=== PATIENT | female | born 2000 | race Caucasian/White ===

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

== ENCOUNTER 2024-07-21 17:17 | Emergency (ER) | payer OTHER, SELFPAY ==
[2024-07-21 17:55] VITALS: BP 112/33; PULSE 61; RESP 20; TEMP 36.8; O2SAT 100; BMI 19.5
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
[2024-07-21 19:37] LABS: IDNOW Serial# 08D9AD1C; Strep A Nucleic Acid Negative (Negative)
[2024-07-21 20:09] LABS: Influenza A PCR NEGATIVE (Negative); Influenza B PCR NEGATIVE (Negative); Resp Syncy Virus RNA Qual PCR NEGATIVE (Negative); SARS COV2 PCR INHOUSE NEGATIVE (Negative)
[2024-07-21 21:01] VITALS: BP 113/73; PULSE 57; RESP 18; TEMP 37.2; O2SAT 99
== END 2024-07-21 23:46 | disposition left against medical advice (07) ==
LOC: HO.ED 23:42
PROVIDERS: Physician Assistant; Emergency Provider Emergency Medicine
DX: J02.9 Acute pharyngitis, unspecified (principal); Z03.818 Encounter for observation for suspected exposure to other biological agents ruled out; Z59.00 Homelessness unspecified
CPT/HCPCS: 0241U; 87651; 99281; 99283

== ENCOUNTER 2024-07-28 11:39 | Emergency (ER) | payer SELFPAY ==
[2024-07-28 11:46] VITALS: BP 108/56; PULSE 90; RESP 18; TEMP 36.6; O2SAT 99; BMI 17.5
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
[2024-07-28 12:54] LABS: MANUAL DIFF FLAG NO
[2024-07-28 12:57] LABS: Basophils Percent Auto 0.4 % (0-2); Eosinophils Percent Auto 0.7 % (0-4); Hematocrit 35.9 % (37.0-47.0); Hemoglobin 12.3 g/dl (12.0-16.0); Imm Gran Abs Auto 0.01 X10*3/uL (0.00-0.03); Imm Gran Pct Auto 0.2 % (0.0-0.4); Lymphocytes Absolute Auto 1.6 X10*3/uL (1.2-4.9); Lymphocytes Percent Auto 29.7 % (20-40); Mean Corpuscular HGB Conc 34.3 g/dl (31.0-35.0); Mean Corpuscular Hemoglobin 32.4 pg (27.0-33.0); Mean Corpuscular Volume 94.5 fL (80.0-98.0); Mean Platelet Volume 8.6 fL (9.4-12.3); Monocytes Absolute Auto 0.4 X10*3/uL (0.1-1.2); Monocytes Percent Auto 7.1 % (2-11); Neutrophils Absolute Auto 3.4 x10*3/uL (2.0-8.3); Neutrophils Percent Auto 61.9 % (45-73); Platelet Count 245 X10*3/uL (160-400); Red Cell Distribution Width 12.8 % (11.0-16.0); White Blood Count 5.5 X10*3/uL (4.8-10.8)
[2024-07-28 13:03] LABS: Appearance Urine Clear; Color Urine Yellow; Glucose Urine UA Negative (Negative); Leukocyte Esterase Urine Negative (Negative); Nitrite Urine Negative (Negative); Specific Gravity - Urine 1.025 (1.005-1.025); Urine Blood Negative (Negative); Urine Ketones Trace mg/dL (Negative); Urine Protein Trace mg/dL (Neg-Trace)
[2024-07-28 13:06] LABS: UPreg QC Valid YES; Urine Pregnancy POSITIVE (NEGATIVE)
[2024-07-28 13:11] LABS: Alanine Aminotransferase 14 U/L (0-31); Albumin Level 4.2 g/dL (3.5-5.0); Alkaline Phosphatase 50 U/L (39-117); Anion Gap 8 (12-20); Aspartate Amino Transferase 16 U/L (5-31); Bilirubin Direct 0.1 mg/dL (0.0-0.5); Bilirubin Total 0.3 mg/dL (0.0-1.0); Blood Urea Nitrogen 10 mg/dL (9-16); Calcium 8.6 mg/dL (8.4-10.2); Carbon Dioxide 28 mmol/L (22-29); Chloride 110 mmol/L (96-108); Creatinine Clr Calc Pharmacy 83.3; Estimated Glomerular Filt Rate > 60; Glucose Random 80 mg/dL (60-115); Lipase 29 U/L (8-78); Magnesium 2.1 mg/dL (1.6-2.6); Sodium 142 mmol/L (135-145); Total Protein 7.1 g/dL (6.5-8.0)
[2024-07-28 13:16] LABS: HCG Quantitative 129 mIU/mL
[2024-07-28 17:25] VITALS: BP 108/56; PULSE 90; RESP 18; TEMP 36.6; O2SAT 99
== END 2024-07-28 17:25 | disposition home or self-care (01) ==
PROVIDERS: Physician Assistant; Emergency Provider Emergency Medicine
DX: R10.2 Pelvic and perineal pain (principal); R11.2 Nausea with vomiting, unspecified; Z79.899 Other long term (current) drug therapy
CPT/HCPCS: 36415; 80048; 80076; 81003; 81025; 83690; 83735; 84702; 85025; 99282; 99283

== ENCOUNTER 2024-08-08 16:13 | Emergency (ER) | payer OTHER, SELFPAY ==
--- NOTE | ~2024-08-08 | US_ITS ---
CLINICAL HISTORY: LMP 12 24 25 here with pain no bleeding + US OB 1st Trimester transabdominal and transvaginal Comparison: None Findings: Single intrauterine . Gestational sac identified with a mean sac diameter of 0.96 cm for a gestational age of 5 weeks 4 days There is a possible pole within the gestational sac measuring 0.18 cm in length for a gestational age of 5 weeks 4 days. No heart motion identified. No yolk sac visualized. Previously established gestational age: Five weeks 3 days by LMP. No subchorionic bleed. Ovaries are normal in size and appearance. There is a 2 cm corpus luteum cyst within the right ovary. IMPRESSION: Single intrauterine gestational sac corresponding to a gestational age of 5 weeks 4 days. Possible pole identified, although no heart motion seen, which may be due to very early . Recommend follow-up ultrasound in 7 days to establish viability. This document has been electronically signed by: Tato Pierce MD on 08/08/2024 19:00:59
[2024-08-08 16:43] VITALS: BP 122/68; PULSE 80; RESP 18; TEMP 36.6; O2SAT 100; BMI 17.6
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
[2024-08-08 17:05] LABS: MANUAL DIFF FLAG NO
[2024-08-08 17:09] LABS: Basophils Percent Auto 0.3 % (0-2); Eosinophils Absolute Auto 0.1 X10*3/uL (0.0-0.4); Eosinophils Percent Auto 0.9 % (0-4); Hematocrit 35.5 % (37.0-47.0); Hemoglobin 12.2 g/dl (12.0-16.0); Imm Gran Abs Auto 0.02 X10*3/uL (0.00-0.03); Imm Gran Pct Auto 0.3 % (0.0-0.4); Lymphocytes Absolute Auto 2.4 X10*3/uL (1.2-4.9); Lymphocytes Percent Auto 36.8 % (20-40); Mean Corpuscular HGB Conc 34.4 g/dl (31.0-35.0); Mean Corpuscular Hemoglobin 32.3 pg (27.0-33.0); Mean Corpuscular Volume 93.9 fL (80.0-98.0); Monocytes Absolute Auto 0.6 X10*3/uL (0.1-1.2); Monocytes Percent Auto 9.7 % (2-11); Neutrophils Absolute Auto 3.3 x10*3/uL (2.0-8.3); Platelet Count 204 X10*3/uL (160-400); Red Blood Count 3.78 X10*6/uL (4.20-5.50); Red Cell Distribution Width 12.9 % (11.0-16.0); White Blood Count 6.4 X10*3/uL (4.8-10.8)
[2024-08-08 17:29] LABS: Appearance Urine Clear; Color Urine Yellow; Glucose Urine UA Negative (Negative); Leukocyte Esterase Urine Trace (Negative); Nitrite Urine Negative (Negative); PH 6.5 (5.0-9.0); Specific Gravity - Urine 1.025 (1.005-1.025); UMIC TRIGGER UACC YES; Urine Blood Negative (Negative); Urine Ketones Negative (Negative); Urine Protein Negative (Neg-Trace)
[2024-08-08 17:35] LABS: Bacteria Urine Trace (None Seen); Hyaline Casts Urine 0-2 /LPF (0-2); RBC Urine 0-2 /HPF (0-2); UACC Culture Trigger YES
[2024-08-08 18:07] LABS: Alanine Aminotransferase 14 U/L (0-31); Albumin Level 4.3 g/dL (3.5-5.0); Alkaline Phosphatase 47 U/L (39-117); Anion Gap 10 (12-20); Aspartate Amino Transferase 16 U/L (5-31); Bilirubin Direct 0.2 mg/dL (0.0-0.5); Bilirubin Total 0.3 mg/dL (0.0-1.0); Blood Urea Nitrogen 10 mg/dL (9-16); Calcium 8.7 mg/dL (8.4-10.2); Carbon Dioxide 27 mmol/L (22-29); Chloride 106 mmol/L (96-108); Creatinine Clr Calc Pharmacy 96.3; Estimated Glomerular Filt Rate > 60; Glucose Random 99 mg/dL (60-115); Magnesium 1.9 mg/dL (1.6-2.6); Potassium 3.5 mmol/L (3.3-5.1); Sodium 139 mmol/L (135-145); Total Protein 6.8 g/dL (6.5-8.0)
[2024-08-08 18:09] LABS: HCG Quantitative 11181 mIU/mL
[2024-08-08 18:35] VITALS: BP 104/58; PULSE 70; RESP 16; TEMP 36.8; O2SAT 100
[2024-08-08 20:10] VITALS: BP 104/58; PULSE 70; RESP 16; TEMP 36.8; O2SAT 100
== END 2024-08-08 20:10 | disposition home or self-care (01) ==
PROVIDERS: Emergency Medicine; Emergency Provider Emergency Medicine
DX: O23.41 Unspecified infection of urinary tract in pregnancy, first trimester (principal); B95.1 Streptococcus, group B, as the cause of diseases classified elsewhere; N39.0 Urinary tract infection, site not specified; Z3A.01 Less than 8 weeks gestation of pregnancy
CPT/HCPCS: 36415; 76801; 76817; 80048; 80076; 81001; 83735; 84702; 85025; 87086; 87147; 99284

== ENCOUNTER 2024-08-31 14:56 | Emergency (ER) | payer OTHER, SELFPAY ==
--- OUTSIDE RECORDS SUMMARY | 2024-08-31 18:41 | XMS_ITS | Clinical Summary ---
Author Organization [facility] it Address [address] [place] [address] Care Team Providers Care [employer] Director Name Role Phone Rhiannon Gómez MD Primary Care Prov ider Surgical History Surgery Date Site/Laterality Comments OTHER SURGICAL HISTORY PROCEDURE: DENIES PREVIOUS SURGERY Medical History Medical History Date Comments Urinary tract infection, sit e not specified [id number] DX:Urinary tract infection, site not specified; COMMENT: NORMAL Foster care child 01/12/2016 DX:Foster care child Family History Medical History Relation Name Comments Asthma Brother Asthma Father Diabetes Maternal Grandmother Anemia Mother Other cancer Other 1 paternal side Other: cancer other Other 2 maternal side Asthma Paternal Grandfather Diabetes Paternal Grandfather Allergies Uncle pcn. Relation Name Status Comments Brother Father Alive Maternal Grandmother Mother Alive Other 1 Other 2 Paternal Grandfather Uncle Social History Tobacco Use Types Packs/Day Years Used Date Smoking Tobacco: Former Smokeless Tobacco: Never Alcohol Use Standard Drinks/Week Comments No 0 (1 standard drink = 0.6 oz pur e alcohol) Comments Unknown Sex and Gender Information Value Date Recorded Sex Assigned at Not on file Legal Sex Female 10:44 AM EST Gender Identity Not on file Sexual Orientation Not on file Obstetrics History Plan of Treatment Health Maintenance Due Date Last Done Comments Gonorrhea/Chlamydia Screening 2001 Meningococcal B Vacine (1 of 2 - Standard) 2017 Depression Screening 06/05/2022 HIV Screening 06/05/2022 Hepatitis C Screening 06/05/2022 Social Influencers of Health Screening 06/05/2022 Cervical Cancer Screening: Pap Smear 2022 DTaP,Tdap,and Td Vaccines (7 - Td or Tdap) 09/04/2023 09/04/2013, 11/27/2006, 09/01/2003, Additional history exists COVID-19 Vaccine ( season) 2024 Influenza Vaccine (#1) 2024 4, 05/26/2013, 04/17/2012, Additional history exists Hepatitis B Vaccines Completed 10/28/2002, 01/02/2002, 2001 HIB Vaccines Completed 09/01/2003, 11/06, 09/16/2002 IPV Vaccines Completed 11/27/2006, 08/09, 09/01/2003, Additional history exists MMR Vaccines Completed 11/27/2006, 11/29/2003 Varicella Vaccines Completed 11/27/2006, 01/28/2004 HPV Vaccines Completed 09/14/2014, 12/07, 09/04/2013 Meningococcal ACWY Vaccine Completed 11/14/2017, Hepatitis A Vaccines Aged Out No long er eligible based on patient's age to complete this topic Pneumococcal Vaccine: Pediatrics (0 to 5 Years) and At-Risk Patients (6 to 64 Years) Aged Out No longer eligible based on patient's age to complete this topic RSV Immunization Patients Under 20 months Aged Out No longer eligible based on patient's age to complete this topic Care Teams [employer] Director Relationship Specialty Start Date End Date Rhiannon Gómez MD PCP - General Pediatrics 12/04/14
== END 2024-08-31 17:14 | disposition left against medical advice (07) ==
LOC: HO.ED 17:08
PROVIDERS: Emergency Provider Emergency Medicine
DX: R10.9 Unspecified abdominal pain (principal); Z53.21 Procedure and treatment not carried out due to patient leaving prior to being seen by health care provider